=== PATIENT | female | born 1980 | race Caucasian/White ===

== ENCOUNTER 2019-07-04 07:33 | Day surgery (SDC) | payer SELFPAY ==
[2019-07-03 11:04] LABS: PLATELET COUNT 248 x10^3mcL (130-400); RED CELL DISTRIBUTION WIDTH 12.6 % (11.5-14.5)
[2019-07-03 12:01] LABS: SODIUM SERUM 136 mmol/L (136-145)
[2019-07-03 12:02] LABS: CALCIUM 8.9 mg/dL (8.5-10.1); CARBON DIOXIDE 26.3 mmol/L (21-32); CHLORIDE SERUM 102 mmol/L (98-107); CREATININE SERUM 0.7 mg/dL (0.6-1.0); GFR1 > 60 mL/min; GLUCOSE SERUM 96 mg/dL (74-106); POTASSIUM SERUM 4.3 mmol/L (3.5-5.1)
[~2019-07-04] VITALS: Ht 152.4 cm; Wt 49.4 kg
[2019-07-04 08:02] VITALS: BP 107/80
[2019-07-04 17:31] VITALS: BP 110/73
== END 2019-07-04 17:15 | disposition home or self-care (01) ==
LOC: DS 07:33 → OR 09:30 → DS 17:15
PROVIDERS: Obstetrics & Gynecology
DX: C53.8 Malignant neoplasm of overlapping sites of cervix uteri (principal); Z98.891 History of uterine scar from previous surgery
CPT/HCPCS: J0330; J0690; J1885; J2175; J2250; J2405; J2704; J3010; J3490; J7030; J7120